=== PATIENT | male | born 1945 | race Caucasian/White ===

== ENCOUNTER 2018-03-22 00:29 | Emergency (ER) | payer MEDICARE, OTHER ==
[2018-03-22] MEDS: Sodium Chloride 0.9% 10 ML Syringe FLUSH PRN (00:46)
[2018-03-22] MEDS: diphenhydrAMINE 50 MG/ML SDV IVPUSH ONE (00:46)
[2018-03-22] MEDS: EPINEPHrine 1 MG/ML SDV IM ONE (00:47)
--- NOTE | 2018-03-22 00:47 | EDM.PDOC ---
ED HPI GENERAL MEDICAL PROBLEM - General Chief Complaint: Allergic Reaction Stated Complaint: PEANUT REACTION Time Seen by Provider: 03/22/18 00:37 Source of Information: Reports: Patient, RN Notes Reviewed History Limitations: Reports: No Limitations - History of Present Illness INITIAL COMMENTS - FREE TEXT/NARRATIVE: Here with his spouse Chief complaint Facial swelling, suspected allergy History of present illness 72-year-old male who finished ajar dry roasted peanuts tonight about 10:30 PM and about an hour later started developing swelling of the face itching and watering of the eyes and muffled voice. No chest discomfort or difficulty breathing except his nose was stuffy. Similar reaction last week when he had some of the peanuts as well. No known history of allergy previously. Does have a history of hypertension - Related Data Allergies Allergy/AdvReac Type Severity Reaction Status Date / Time environmental Allergy Sneezing Uncoded 03/22/18 00:35 Home Meds: Home Meds Aspirin [Adult Low Dose Aspirin EC] 81 mg PO DAILY 02/01/14 [History] Docusate Sodium [Colace] 100 mg PO BID 02/01/14 [History] Fexofenadine/Pseudoephedrine [Vonda-D 24 Hour Tablet] 1 tab PO DAILY 02/01/14 [History] Fluticasone Propionate [Flovent HFA 110 MCG] 1 puff INH DAILY 02/01/14 [History] Losartan [Cozaar] 100 mg PO DAILY 02/01/14 [History] Metoprolol Succinate 25 mg PO DAILY 02/01/14 [History] [place]-3/DHA/Epa/Fish Oil [[place]-3 Fish Oil 1,000 MG Sfgl] 2,000 mg PO DAILY [History] Omeprazole 40 mg PO DAILY 02/01/14 [History] Red Yeast Rice 1,200 mg PO DAILY 02/01/14 [History] Saw [place] Fruit [Saw [place]] 900 mg PO BID 02/01/14 [History] Past Medical History Other HEENT History: deviated septum ED ROS ALLERGIC REACTION - Review of Systems Review Of Systems: See Below Constitutional: Reports: Malaise. Denies: Fever, Chills, Diaphoresis, Decreased Appetite HEENT: Reports: Eye Discharge, Eye Pain (Swelling redness), Rhinitis (Congestion ), Throat Swelling (Muffled voice). Denies: Dental Pain, Ear Pain, Nose Pain, Throat Pain Respiratory: Reports: No Symptoms. Denies: Wheezing, Cough Cardiovascular: Reports: Blood Pressure Problem (Elevated blood pressure tonight ). Denies: Chest Pain, Dyspnea on Exertion Endocrine: Reports: No Symptoms GI/Abdominal: Reports: No Symptoms : Reports: No Symptoms Musculoskeletal: Reports: No Symptoms Skin: Reports: No Symptoms Neurological: Reports: No Symptoms Hematologic/Lymphatic: Reports: No Symptoms Immunologic: Reports: Food Allergy (Possible peanut allergy) ED EXAM GENERAL NO PERIP PULSE - Physical Exam Exam: See Below Exam Limited By: No Limitations General Appearance: Alert, Mild Distress, Other (Speech is somewhat muffled, bilateral conjunctival injection, Blood pressure elevated) Eye Exam: Bilateral Eye: Conjunctival Injection (With discharge) Ears: Normal External Exam, Normal Canal, Hearing Grossly Normal, Normal TMs Nose: Normal Inspection, Nasal Swelling Throat/Mouth: Normal Lips, Normal Teeth, Normal Gums, Other Head: Atraumatic (Muffled voice) Neck: Normal Inspection, Supple, Non-Tender, Full Range of Motion Respiratory/Chest: No Respiratory Distress, Lungs Clear, Normal Breath Sounds, No Accessory Muscle Use Cardiovascular: Normal Peripheral Pulses, Regular Rate, Rhythm, No Edema Back Exam: Normal Inspection Extremities: Normal Inspection Neurological: Alert, Oriented, No Motor/Sensory Deficits Psychiatric: Normal Mood Skin Exam: Warm, Dry, Intact, Normal Color Course - Vital Signs Last Recorded V/S: Last Vital Signs Temp 36.7 C 03/22/18 00:33 Pulse 77 03/22/18 01:17 Resp 14 03/22/18 01:17 BP 163/84 H 03/22/18 01:17 Pulse Ox 97 03/22/18 01:17 - Orders/Labs/Meds Orders: Active Orders 24 hr Category Date Time Status Sodium Chloride 0.9% [Saline Flush] Med 03/22/18 00:42 Active 10 ml FLUSH ASDIRECTED PRN Saline Lock Insert [OM.PC] Stat Oth 03/22/18 00:42 Ordered Medication Orders Sodium Chloride (Saline Flush) 10 ml FLUSH ASDIRECTED PRN PRN Reason: Keep Vein Open Last Admin: 03/22/18 00:46 Dose: 10 ml Meds: Medications Generic Name Dose Route Start Last Admin Trade Name Freq PRN Reason Stop Dose Admin Sodium Chloride 10 ml 03/22/18 00:42 03/22/18 00:46 Saline Flush FLUSH 10 ml ASDIRECTED PRN Administration Keep Vein Open Discontinued Medications Generic Name Dose Route Start Last Admin Trade Name Ana María PRN Reason Stop Dose Admin Diphenhydramine HCl 50 mg 03/22/18 00:42 03/22/18 00:46 Benadryl IVPUSH 03/22/18 00:43 50 mg ONETIME ONE Administration Epinephrine HCl 0.3 mg 03/22/18 00:42 03/22/18 00:47 Adrenalin IM 03/22/18 00:43 0.3 mg ONETIME ONE Administration Prednisone 20 mg 03/22/18 01:19 03/22/18 01:24 Prednisone PO 03/22/18 01:20 20 mg ONETIME ONE Administration - Re-Assessments/Exams Free Text/Narrative Re-Assessment/Exam: 03/22/18 00:46 72-year-old male with onset of facial swelling conjunctival injection nasal congestion and oral swelling after eating peanuts tonight Saline lock, Benadryl 50 mg IV, epineph 0.3 mg IMrine 03/22/18 01:20 Appearance is a little improved now, has voices approaching normal Prednisone 20 mg by mouth 03/22/18 01:53 Significantly improved at this time, ready for discharge See discharge instructions Departure - Departure Time of Disposition: 01:53 Disposition: Home, Self-Care 01 Condition: Good Clinical Impression: Allergic reaction to food Qualifiers: Encounter type: initial encounter Qualified Code(s): T78.1XXA - Other adverse food reactions, not elsewhere classified, initial encounter - Discharge Information Instructions: Food Allergy Referrals: Gal Cardona MD [Primary Care Provider] - Forms: ED Department Discharge Additional Instructions: Take diphenhydramine/Benadryl 50 mg 4 times daily for 3 days Alternative you may take Zyrtec or Claritin/loratadinel one 10 mg tablet daily for 3 days In addition prednisone as prescribed - My Orders Last 24 Hours: My Active Orders 03/22/18 00:42 Sodium Chloride 0.9% [Saline Flush] 10 ml FLUSH ASDIRECTED PRN Saline Lock Insert [OM.PC] Stat - Assessment/Plan Last 24 Hours: My Active Orders 03/22/18 00:42 Sodium Chloride 0.9% [Saline Flush] 10 ml FLUSH ASDIRECTED PRN Saline Lock Insert [OM.PC] Stat
[2018-03-22 01:19] VITALS: BP 163/84
[2018-03-22] MEDS: predniSONE 20 MG Tab PO ONE (01:24)
== END 2018-03-22 02:07 | disposition home or self-care (01) ==
LOC: JP.ED 00:29
DX: T78.1XXA Other adverse food reactions, not elsewhere classified, initial encounter (principal); Z79.82 Long term (current) use of aspirin; Z79.899 Other long term (current) drug therapy; Z91.09 Other allergy status, other than to drugs and biological substances
CPT/HCPCS: 96372; 96374; 99283; A9270; J0171; J1200; J7050

== ENCOUNTER 2020-01-04 16:25 | Emergency (ER) | payer MEDICARE, BC ==
[2020-01-04 16:38] VITALS: BP 188/82; PULSE 89
--- NOTE | 2020-01-04 17:06 | EDM.PDOC ---
ED HPI GENERAL MEDICAL PROBLEM - General Chief Complaint: Lower Extremity Injury/Pain Stated Complaint: LEG PAIN Time Seen by Provider: 01/04/20 16:53 Source of Information: Reports: Patient, RN Notes Reviewed History Limitations: Reports: No Limitations - History of Present Illness INITIAL COMMENTS - FREE TEXT/NARRATIVE: 74-year-old gentleman presents emergency department a complaint of left leg pain , he has been doing a lot of standing for long period of time has had some pain in his knees pain in both legs bilaterally but over the last 24 hours he is developed significant edema redness and warmth in his left lower extremity has been using ibuprofen 800 p.o. 3 times daily for pain control history of coronary artery disease no history of DVT takes daily aspirin Bilateral Lower Leg Pain Score (Numeric/FACES): 6 - Related Data Allergies Allergy/AdvReac Type Severity Reaction Status Date / Time environmental Allergy Sneezing Uncoded 01/04/20 16:38 Home Meds: Home Meds Aspirin [Adult Low Dose Aspirin EC] 81 mg PO DAILY 02/01/14 [History] Fexofenadine/Pseudoephedrine [Vonda-D 24 Hour Tablet] 1 tab PO DAILY 02/01/14 [History] Fluticasone Propionate [Flovent HFA 110 MCG] 1 puff INH DAILY 02/01/14 [History] Losartan [Cozaar] 100 mg PO DAILY 02/01/14 [History] Metoprolol Succinate 25 mg PO DAILY 02/01/14 [History] [place]-3/DHA/Epa/Fish Oil [[place]-3 Fish Oil 1,000 MG Sfgl] 2,000 mg PO DAILY [History] Omeprazole 40 mg PO DAILY 02/01/14 [History] Red Yeast Rice 1,200 mg PO DAILY 02/01/14 [History] [place] Fruit [S[place]] 900 mg PO BID 02/01/14 [History] predniSONE [Prednisone] 20 mg PO BID #6 tablet 03/22/18 [Rx] Loratadine 10 mg PO DAILY 01/04/20 [History] Past Medical History HEENT History: Reports: Impaired Vision Other HEENT History: deviated septum Cardiovascular History: Reports: CAD, High Cholesterol, Hypertension, ID Respiratory History: Reports: Sleep Apnea Other Respiratory History: cpap Gastrointestinal History: Reports: Chronic Constipation Genitourinary History: Reports: Urinary Incontinence Musculoskeletal History: Reports: Back Pain, Chronic Endocrine/Metabolic History: Reports: Obesity/BMI 30+ Oncologic (Cancer) History: Reports: Colon - Infectious Disease History Infectious Disease History: Reports: Chicken Pox, Measles, Mumps, Scarlet Fever - Past Surgical History Head Surgeries/Procedures: Reports: None HEENT Surgical History: Reports: Adenoidectomy, Tonsillectomy Cardiovascular Surgical History: Reports: None Respiratory Surgical History: Reports: None GI Surgical History: Reports: Cholecystectomy, Colon, Hernia, Inguinal Endocrine Surgical History: Reports: None Musculoskeletal Surgical History: Reports: None Oncologic Surgical History: Reports: None Dermatological Surgical History: Reports: None Social & Family History - Family History Family Medical History: Noncontributory - Tobacco Use Smoking Status *Q: Former Smoker Used Tobacco, but Quit: Yes Month/Year Tobacco Last Used: 1969 Second Hand Smoke Exposure: No - Caffeine Use Caffeine Use: Reports: Coffee - Recreational Drug Use Recreational Drug Use: No Review of Systems - Review of Systems Review Of Systems: See Below Constitutional: Reports: No Symptoms Respiratory: Reports: No Symptoms Cardiovascular: Reports: No Symptoms Musculoskeletal: Reports: Leg Pain Skin: Reports: Pallor, Erythema ED EXAM, GENERAL - Physical Exam Exam: See Below Free Text/Narrative:: Examination of the left lower extremity it is markedly edematous when compared to the right it is warm to the touch it is tender to the touch pedal pulses +2 Exam Limited By: No Limitations General Appearance: Alert, WD/WN, No Apparent Distress Course - Vital Signs Last Recorded V/S: Last Vital Signs Temp 98.5 F 01/04/20 16:41 Pulse 89 01/04/20 16:41 Resp 16 01/04/20 16:41 BP 188/82 H 01/04/20 16:41 Pulse Ox 96 01/04/20 16:41 - Orders/Labs/Meds Orders: Active Orders 24 hr Category Date Time Status VL Duplex Lwr Ext Veins Ltd Lt [US] Stat Exams 01/04/20 17:02 Ordered Departure - Departure Time of Disposition: 18:15 Disposition: Home, Self-Care 01 Condition: Fair Clinical Impression: Leg edema, left - Discharge Information Instructions: Edema, [id number] Referrals: PCP,None [Primary Care Provider] - Forms: ED Department Discharge Additional Instructions: Continue with the ibuprofen, use rest and ice as needed for comfort follow-up primary care 3 to 5 days if not better call return to the emergency department worsening of symptoms Sepsis Event Note - Evaluation Sepsis Screening Result: No Definite Risk - Focused Exam Vital Signs: Vital Signs Temp Pulse Resp BP Pulse Ox 01/04/20 16:41 98.5 F 89 16 188/82 H 96 01/04/20 16:36 98.5 F 89 16 188/82 H 96 Date Exam was Performed: 01/04/20 Time Exam was Performed: 18:15 - My Orders Last 24 Hours: My Active Orders 01/04/20 17:02 VL Duplex Lwr Ext Veins Ltd Lt [US] Stat - Assessment/Plan Last 24 Hours: My Active Orders 01/04/20 17:02 VL Duplex Lwr Ext Veins Ltd Lt [US] Stat Plan: Assessment Acuity = acute Site and laterality = left leg swelling Etiology = probably related to inflammatory response Manifestations = none Location of injury = Home Lab values = ultrasound negative for DVT Plan Continue with the ibuprofen rest ice follow-up primary care 3 to 5 days if no improvement This note was dictated using [employer] voice recognition software please call with any questions on syntax or grammar.
--- NOTE | 2020-01-07 10:01 | US ---
VL Duplex Lwr Ext Veins Ltd Lt INDICATION: pain edema red FINDINGS: Ultrasound examination of the lower extremity using Doppler and compressive technique demonstrates that the common femoral, femoral, and popliteal veins are patent, and compressible The calf veins were segmentally visualized and are negative where seen. There is a small popliteal fluid collection IMPRESSION: Negative for deep venous thrombosis. Small Ortiz's cyst
== END 2020-01-04 18:22 | disposition home or self-care (01) ==
LOC: JP.ED 16:25
DX: R60.0 Localized edema (principal); I25.10 Atherosclerotic heart disease of native coronary artery without angina pectoris; I10 Essential (primary) hypertension; I25.2 Old myocardial infarction; E66.9 Obesity, unspecified; Z87.891 Personal history of nicotine dependence; Z91.09 Other allergy status, other than to drugs and biological substances; Z79.82 Long term (current) use of aspirin; Z79.899 Other long term (current) drug therapy; Z68.32 Body mass index [BMI] 32.0-32.9, adult
CPT/HCPCS: 93971-26-LT; 93971-LT; 99282; 99283-25

== ENCOUNTER 2020-02-21 06:29 | Day surgery (SDC) | payer MEDICARE, BC ==
[2020-02-21] MEDS ORDERED: Dextrose 5%-Lactated Ringers 1,000 ML IV SCH (07:00)
[2020-02-21] MEDS ORDERED: fentaNYL 100 MCG/2 ML SDV ONE (07:18)
[2020-02-21] MEDS ORDERED: Midazolam 1 MG/ML 2 ML SDV ONE (07:18)
[2020-02-21] MEDS ORDERED: Propofol 200 MG/20 ML SDV ONE (07:18)
[2020-02-21 09:37] VITALS: BP 112/80; PULSE 68
--- NOTE | 2020-02-22 10:30 | OR ---
DATE OF PROCEDURE: 02/21/2020 SURGEON: Deric Jones MD PREOPERATIVE DIAGNOSIS: History of colon carcinoma. POSTOPERATIVE DIAGNOSIS: Two small polyps (transverse colon and cecum). OPERATIVE PROCEDURES: Flexible colonoscopy with: 1. Snare removal of transverse colon polyp ([id number]). 2. Biopsy with complete removal of small cecal polyp ([id number]). ANESTHESIA: IV sedation. INDICATIONS FOR PROCEDURE: A 74-year-old who is status post sigmoid colon carcinoma in 2012, presenting for a followup colonoscopy. Plan is to proceed with colonoscopy with biopsies and/or polypectomy as indicated. Potential risks of the procedure including bleeding and perforation were discussed, and the patient wishes to proceed. DETAILS OF PROCEDURE: The patient was taken to the operating room and placed in a left lateral decubitus position. IV sedation was administered, after which the initial digital rectal exam was performed and was unremarkable. Colonoscope was then passed into the rectum with retroflexion revealing uncomplicated hemorrhoidal columns. Scope was then passed to the level of the cecum. The prep was quite good with only small amount of liquid stool that was present. There was no diverticular disease or areas of colitis. The area of the sigmoid colon anastomosis was unremarkable. There were 2 small polyps, 1 measuring around 3 mm, located in the transverse colon. This was removed by means of cautery snare technique and then a smaller polyp in the cecum which was removed with 2 bites of the cold biopsy forceps, which completely removed the area of concern. No significant bleeding was noted from either sites, and the procedure was then concluded. Upon removal of the scope, no additional abnormalities were seen. Assuming more than both of these polyps would be adenomatous in nature, the next followup colonoscopy should probably be in roughly 2 years. Deric Jones MD /[id number]
== END 2020-02-21 09:05 | disposition home or self-care (01) ==
LOC: JP.SDS 06:29
PROVIDERS: ATTEND Surgery
DX: Z12.11 Encounter for screening for malignant neoplasm of colon (principal); D12.3 Benign neoplasm of transverse colon; D12.0 Benign neoplasm of cecum; I10 Essential (primary) hypertension; K21.9 Gastro-esophageal reflux disease without esophagitis; G47.33 Obstructive sleep apnea (adult) (pediatric); Z85.038 Personal history of other malignant neoplasm of large intestine; Z98.890 Other specified postprocedural states; Z88.8 Allergy status to other drugs, medicaments and biological substances; Z91.010 Allergy to peanuts; Z99.89 Dependence on other enabling machines and devices
CPT/HCPCS: 45380; 45385; 88305; J2250; J2704; J3010; J7121

== ENCOUNTER 2022-02-26 07:11 | Day surgery (SDC) | payer MEDICARE, BC ==
[~2022-02-26 07:11] MED LIST: Midazolam 1 MG/ML 2 ML SDV ONE; Propofol 200 MG/20 ML SDV ONE; fentaNYL 100 MCG/2 ML SDV ONE
[2022-02-26] MEDS ORDERED: Dextrose 5%-Lactated Ringers 1,000 ML IV SCH (08:00)
[2022-02-26] MEDS ORDERED: Ondansetron 4 MG/2 ML SDV IVPUSH ONE (09:38)
[2022-02-26 10:41] VITALS: BP 140/76; PULSE 62
== END 2022-02-26 10:42 | disposition home or self-care (01) ==
LOC: JP.SDS 07:11
PROVIDERS: ATTEND Surgery
DX: Z12.11 Encounter for screening for malignant neoplasm of colon (principal); I10 Essential (primary) hypertension; K64.9 Unspecified hemorrhoids; I25.2 Old myocardial infarction; G47.33 Obstructive sleep apnea (adult) (pediatric); K21.9 Gastro-esophageal reflux disease without esophagitis; Z86.010 Personal history of colon polyps; Z85.038 Personal history of other malignant neoplasm of large intestine; Z88.8 Allergy status to other drugs, medicaments and biological substances
CPT/HCPCS: J2250; J2405; J2704; J3010; J7121